=== PATIENT | male | born 1995 | race Caucasian/White ===

== ENCOUNTER 2017-02-01 04:06 | Emergency (ER) | payer OTHER ==
[2017-02-01 04:13] VITALS: RESP 18; TEMP 98.4
--- NOTE | 2017-02-01 04:28 | EDPHY ---
H & P Stated Complaint: fall out 3 story window - left ankle pain Time Seen by Provider: 02/01/17 04:18 HPI/ROS: Chief Complaint: Fall, left leg pain HPI: 21-year-old intoxicated male reportedly fell tonight, possibly out of a 3rd story window, landing on his left leg. Patient has pain in his left knee and left ankle. He does not have full recollection of events. He is not complaining of a headache. No neck pain. No chest pain or abdominal pain. No fevers or chills. Denies past medical history. Has pain primarily in the front of his knee and the lateral aspect of his left ankle. Does admit to drinking multiple alcoholic beverages this evening. ROS: 10 point Review of Systems is negative except as noted in the HPI. PMH: Denies Social History: No smoking, positive alcohol, no recreational drug use Family History: non-contributory Physical Exam: Gen: Awake, Alert, Airway Intact HEENT: Head: Atraumatic Eyes: PERRLA, EOMI Nose: No epistaxis Mouth: Normal dentition, Airway patent Face: No deformity Neck: non-tender, no stepoff, Full ROM without pain Chest: non-tender, lungs CTA Heart: normal heart tones Abd: soft, non-tender, atraumatic Pelvis: non-tender, stable to AP and Lateral compression Back: atraumatic, no midline tenderness Ext: Left hip full range of motion, nontender, left knee, he has got an abrasion over the patella. He is unable to flex past 90 secondary to pain. He has got some mild tibial tenderness. Left ankle. He has got some mild tenderness over the lateral malleolus in the anterior talofibular ligament. No significant swelling. Skin: no rash Neuro: CN II-XII intact, Strength 5/5 in all extremities, sensation intact in all extremities - Personal History Current Tetanus/Diphtheria Vaccine: Yes Current Tetanus Diphtheria and Acellular Pertussis (TDAP): Yes Tetanus Vaccine Date: 2014 - Medical/Surgical History Hx Asthma: No Hx Chronic Respiratory Disease: No Hx Diabetes: No Hx Cardiac Disease: No Hx Renal Disease: No Hx Cirrhosis: No Hx Alcoholism: No Hx HIV/AIDS: No Hx Splenectomy or Spleen Trauma: No Other PMH: denies - Social History Smoking Status: Never smoked Constitutional: Initial Vital Signs Temperature (C) 36.9 C 02/01/17 04:08 Heart Rate 99 02/01/17 04:08 Respiratory Rate 18 02/01/17 04:08 Blood Pressure 133/78 H 02/01/17 04:08 O2 Sat (%) 96 02/01/17 04:08 O2 Delivery Mode Room Air Allergies/Adverse Reactions: No Known Allergies Allergy (Unverified 02/01/17 04:11) Home Medications: Medication Instructions Recorded NK [No Known Home Meds] 02/01/17 Medical Decision Making - Diagnostics Imaging Results: Left knee x-ray is negative per my interpretation. Left ankle x-rays negative per my interpretation. Imaging: I viewed and interpreted images myself ED Course/Re-evaluation: 21-year-old male status post fall with left knee and ankle pain. He is no longer clinically intoxicated. X-rays are negative. He is here with his parents. He has been given crutches and referral to Orthopedics for outpatient follow-up. No fractures this time. No symptoms or findings suggestive of acute intracranial bleed or head injury. Departure - Departure Disposition: Home, Routine, Self-Care Clinical Impression: Knee sprain, Ankle sprain, Alcohol intoxication Condition: Good Instructions: Knee Sprain (ED), Ankle Sprain (ED), Crutch Instructions (ED), Alcohol Intoxication (ED) Additional Instructions: Follow up with Orthopedics in 3-4 days if symptoms are not improving. Return emergency depart for increasing headache, nausea, vomiting, fevers, chills, confusion, or any other concerns. Referrals: Pramod Hernández MD [Medical Doctor] - As per Instructions
[2017-02-01 05:52] VITALS: BP 123/82; PULSE 87; O2SAT 94
== END 2017-02-01 05:53 | disposition home or self-care (01) ==
DX: S83.92XA Sprain of unspecified site of left knee, initial encounter (principal); S93.402A Sprain of unspecified ligament of left ankle, initial encounter; F10.129 Alcohol abuse with intoxication, unspecified; W18.30XA Fall on same level, unspecified, initial encounter
CPT/HCPCS: L0120